=== PATIENT | male | born 1990 | race Caucasian/White ===

== ENCOUNTER 2016-10-04 14:48 | Emergency (ER) | payer BC ==
[2016-10-04 14:49] VITALS: BMI 27.7
[2016-10-04 14:54] VITALS: BP 138/97; PULSE 70; TEMP 98.4; O2SAT 100
[2016-10-04] MEDS ORDERED: Lidocaine 1% Inj (20ml) INFIL ONE (15:19)
[2016-10-04] MEDS ORDERED: Lidocaine 1% Inj (20ml) ONE (15:22)
--- NOTE | 2016-10-04 15:29 | C.PDOC ---
History Of Present Illness 25 yr old male presents to the ER with complaints of pain and swelling to the right side of the chin for the past 2 days. Patient reports of some whitish discharge at some point and has been applying warm compresses to the area. Patient denies fever, chills, nausea, vomiting, headache, weakness or numbness. Time Seen by Provider: 10/04/16 14:59 Chief Complaint (Nursing): Abnormal Skin Integrity History Per: Patient History/Exam Limitations: no limitations Onset/Duration Of Symptoms: Days (2) Current Symptoms Are (Timing): Still Present Past Medical History Reviewed: Historical Data, Nursing Documentation, Vital Signs Vital Signs: Last Vital Signs Temp 98.4 F 10/04/16 14:51 Pulse 70 10/04/16 14:51 Resp 18 10/04/16 14:51 BP 138/97 H 10/04/16 14:51 Pulse Ox 100 10/04/16 16:12 - Medical History PMH: Asthma Surgical History: No Surg Hx - [facility] Procedures TETANUS TOXOID ADMINIST (11/06/12) Family History: States: No Known Family Hx - Social History Hx Tobacco Use: Yes Hx Alcohol Use: No Hx Substance Use: No - Immunization History Hx Tetanus Toxoid Vaccination: Yes (11/06/2012) Hx Influenza Vaccination: No Hx Pneumococcal Vaccination: No Review Of Systems Except As Marked, All Systems Reviewed And Found Negative. Constitutional: Negative for: Fever, Chills Gastrointestinal: Negative for: Nausea, Vomiting Skin: Positive for: Other (Area of pain and swelling to the right side of the chin. ) Neurological: Negative for: Weakness, Numbness, Headache Physical Exam - Physical Exam Appears: Well, Non-toxic, No Acute Distress Skin: Warm, Dry, Other (Right side of chin - Swelling and induration. Small area of fluctuance and scabbed over area. No erythema. ) Head: Atraumatic, Normacephalic Oral Mucosa: No Drooling, No Trismus Tongue: Normal Appearing, No Swelling, No Lesions, Other (no sublingual swelling ) Lips: Normal Appearing, No Swelling, No Contusion Gingiva: Normal Appearing, No Erythema, No Swelling Throat: Normal, No Erythema, No Exudate, No Drooling Lymphatic: Adenopathy (bilateral submandibular and submental node tenderness) Chest: Symmetrical, No Tenderness Cardiovascular: Rhythm Regular, No Murmur Respiratory: Normal Breath Sounds, No Rales, No Rhonchi, No Stridor, No Wheezing Extremity: No Swelling Neurological/Psych: Oriented x3, Normal Speech, Normal Motor ED Course And Treatment O2 Sat by Pulse Oximetry: 100 Progress Note: Patient was seen and evaluated by Dr. Dutton amd agreed with the treatment plan. - Incision & Drainage Of Abscess Anesthesia: Lidocaine 1% Prep Used: Betadine Procedure: Incised W/Scalpel Blade#: (11), Drained Pus (pt tolerated procedure well) Medical Decision Making Medical Decision Making: PLAN: * Motrin PO , I and D * * * 413 pm pt feeling better after I and D. WIll d/c with bactrim. wound check in 2 days Disposition - Disposition Referrals: [facility] [Outside] Disposition: HOME/ ROUTINE Disposition Time: 16:07 Condition: IMPROVED Additional Instructions: Apply warm compresses to chin 3-4 times a day. Take antibiotics every 12 hours for 10 days. Take 600 mg ibuprofen by mouth every 6 hours for pain if needed. Return to ED in 2 days for a wound check. Return to ER sooner if swelling spreads into mouth or tongue area, pain increases, you develop a fever or have any trouble swallowing or breathing or any other concerns. Prescriptions: Sulfamethoxazole/Trimethoprim [Bactrim DS 800 mg-160 mg] 1 tab PO BID #20 tab Instructions: Abscess Incision and Drainage (ED), Abscess (ED) Forms: Work Excuse Print Language: PERSIAN - Clinical Impression Clinical Impression: Abscess of chin - PA / [employer] PAYABLE SPECIALIST / Resident Statement MD/DO has reviewed & agrees with the documentation as recorded. - Scribe Statement The provider has reviewed the documentation as recorded by the Scribe Carisa Johnson All medical record entries made by the Annelibdavid were at my direction and personally dictated by me. I have reviewed the chart and agree that the record accurately reflects my personal performance of the history, physical exam, medical decision making, and the department course for this patient. I have also personally directed, reviewed, and agree with the discharge instructions and disposition.
[2016-10-04] MEDS ORDERED: Tmp-Smz 800 mg-160 mg DS Tab PO STA (15:48)
[2016-10-04] MEDS ORDERED: Tmp-Smz 800 mg-160 mg DS Tab ONE (15:58)
[2016-10-04 16:25] VITALS: RESP 20
== END 2016-10-04 16:24 | disposition home or self-care (01) ==
LOC: C.ER 14:48
DX: L02.01 Cutaneous abscess of face (principal)